=== PATIENT | female | born 1970 | race Caucasian/White ===

== ENCOUNTER 2022-10-30 11:33 | Outpatient (CLI) | payer OTHER | END 2022-10-30 11:38 | disposition home or self-care (01) | LOC: SONOGRAMA 11:33 | PROVIDERS: ATTEND Pathology Anatomic Pathology & Clinical Pathology | DX: D44.0 Neoplasm of uncertain behavior of thyroid gland (principal); E07.9 Disorder of thyroid, unspecified ==

== ENCOUNTER 2022-11-27 07:42 | Outpatient (CLI) | payer OTHER | END 2022-11-27 07:49 | disposition home or self-care (01) | LOC: SONOGRAMA 07:42 | PROVIDERS: ATTEND Pathology Anatomic Pathology & Clinical Pathology | DX: D34 Benign neoplasm of thyroid gland (principal); E04.9 Nontoxic goiter, unspecified ==

== ENCOUNTER 2024-05-16 05:12 | Day surgery (SDC) | payer OTHER ==
[2024-05-09 14:21] VITALS: BP 123/84
[~2024-05-16] VITALS: Ht 177.8 cm; Wt 119.7 kg
[~2024-05-16 05:12] MED LIST: COZAAR100 MG PO; SYNTHROID150 MCG PO
[2024-05-16] MEDS ORDERED: POVIDONE-IODINE 118 ML BOTT TOP ONE (07:30)
[2024-05-16] MEDS ORDERED: IBU600 MG PO (08:13)
== END 2024-05-16 11:15 | disposition home or self-care (01) ==
LOC: CIR.AMB 05:12
PROVIDERS: ATTEND Obstetrics & Gynecology Gynecology
DX: N95.0 Postmenopausal bleeding (principal); Z91.013 Allergy to seafood

== ENCOUNTER → 2024-07-29 | Day surgery (SDC) | payer OTHER ==
[2024-07-26 10:29] VITALS: BP 104/72
[~2024-07-29] VITALS: Ht 177.8 cm; Wt 113.4 kg
[~2024-07-29] MED LIST changes: +CEFAZOLIN SODIUM 1,000 MG VIAL IV ONE; +CEFAZOLIN SODIUM 1,000 MG VIAL ONE; +CHLORHEXIDINE GLUCONATE 120 ML BOTTLE TOP ONE; +ENALAPRILAT DIHYDRATE 1.25 MG/ML VIAL IV ONE; +IBU600 MG PO; +MORPHINE SULFATE 4 MG/ML VIAL IV ONE; +VITAMIN D; +hydrALAZINE HCL 20 MG VIAL ONE
== END | disposition home or self-care (01) ==
LOC: ADM 07-26 15:00 → CIR.AMB 05:38
PROVIDERS: ATTEND Surgery
DX: D05.12 Intraductal carcinoma in situ of left breast (principal); R59.0 Localized enlarged lymph nodes; Z91.013 Allergy to seafood; I10 Essential (primary) hypertension; E11.9 Type 2 diabetes mellitus without complications; E03.8 Other specified hypothyroidism